=== PATIENT | male | born 1950 | race Caucasian/White ===

== ENCOUNTER 2017-01-19 14:17 | Emergency (ER) | payer OTHER, MEDICAID ==
[2017-01-19 14:31] VITALS: TEMP 97.9
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
[2017-01-19] MEDS ORDERED: HYDROCODONE/APAP 5/325 TAB PO ONE (15:52)
[2017-01-19] MEDS ORDERED: OXYCODONE/APAP 5/325 TAB ONE (15:53)
[2017-01-19] MEDS ORDERED: OXYCODONE/APAP 5/325 TAB PO ONE (15:56)
[2017-01-19 16:33] VITALS: BP 118/74; PULSE 86; RESP 18; O2SAT 94
== END 2017-01-19 16:32 | disposition home or self-care (01) ==
DX: M54.5 Low back pain (principal); F17.200 Nicotine dependence, unspecified, uncomplicated

== ENCOUNTER → 2017-10-14 | Outpatient (CLI) | payer OTHER, MEDICAID | LOC: BMCIMAGING 12:18 | PROVIDERS: ATTEND Internal Medicine | DX: J15.9 Unspecified bacterial pneumonia (principal); J06.9 Acute upper respiratory infection, unspecified ==